=== PATIENT | male | born 1955 | race Caucasian/White ===

== ENCOUNTER → 2020-10-11 | Outpatient (CLI) | payer BC ==
[~2020-10-11] MED LIST: ALEVE220 MG PO; APRISO0.375 GM PO; ASPIR 8181 MG PO; BENTYL 10 MG CA10 MG PO; CENTRUM SILVER1 EAC2 PO; FISH OIL 1,001000 M2 PO; GLUCOPHAGE500 MG PO; GLYBURIDE 2.52.5 M1 PO; HYDROCHLOROTHIA50 MG PO; INVOKANA300 MG PO; KOMBIGLYZE XR1 EAC1 PO; LEVEMIR SUBQ; LISINOPRIL20 MG PO; LORTAB; ONDANSETRON HCL4 M2 PO; ONE DAILY COMP1 EAC2 PO; ONGLYZA5 MG PO; PREDNISONE 10 M10 MG; PREDNISONE 20 M20 M1 PO; ROWASA4 GM/60 ML RE; ZOCOR20 MG PO
== END ==
LOC: CAT 08:35
PROVIDERS: ATTEND Family Medicine
DX: Z12.2 Encounter for screening for malignant neoplasm of respiratory organs (principal); I25.10 Atherosclerotic heart disease of native coronary artery without angina pectoris; Z87.891 Personal history of nicotine dependence

== ENCOUNTER → 2020-10-11 | Outpatient (CLI) | payer BC | LOC: SJCVCIMAG 09:04 | PROVIDERS: ATTEND Internal Medicine Cardiovascular Disease | DX: I08.1 Rheumatic disorders of both mitral and tricuspid valves (principal); E11.9 Type 2 diabetes mellitus without complications ==

== ENCOUNTER 2021-12-01 15:29 | Emergency (ER) | payer BC, OTHER ==
[~2021-12-01] VITALS: Ht 170.2 cm; Wt 96.2 kg
[2021-12-01] MEDS ORDERED: JARDIANCE25 MG PO (15:42)
[2021-12-01] MEDS ORDERED: ZOCOR 20 MG TAB20 M1 PO (15:42)
[2021-12-01] MEDS ORDERED: METFORMIN HCL500 MG PO (15:43)
[2021-12-01] MEDS ORDERED: EZETIMIBE10 MG PO (15:43)
[2021-12-01] MEDS ORDERED: PRINIVIL20 MG PO (15:43)
[2021-12-01] MEDS ORDERED: HYDROCHLOROTHIA50 MG PO (15:44)
[2021-12-01 16:43] LABS: ABSOLUTE NEUTROPHILS 10.1 thou/uL (1.4-8.2); BASOPHILS 0.6 % (0.0-2.0); EOSINOPHILS 0.4 % (0.0-3.0); HEMATOCRIT 41.2 % (42.0-52.0); HEMOGLOBIN 13.9 gm/dL (14.0-18.0); LYMPHOCYTES 6.6 % (24.0-44.0); MCH 30.2 pg (26.0-34.0); MCHC 33.8 g/dL (28.0-37.0); MCV 89.6 fL (80.0-100.0); PLATELET COUNT 341 thou/uL (150-400); POLYS 85.4 % (36.0-66.0); RDW 12.7 % (10.5-14.5); WBC 11.9 thou/uL (4.0-11.0)
[2021-12-01 17:00] LABS: CALCIUM 8.5 mg/dL (8.5-10.1); CREATININE 0.8 mg/dL (0.7-1.3); POTASSIUM 3.1 mmol/L (3.5-5.1)
[2021-12-01 17:06] LABS: ALBUMIN 3.3 g/dL (3.4-5.0); TOTAL BILIRUBIN 0.7 mg/dL (0.2-1.0)
[2021-12-01 18:17] LABS: URINE BILIRUBIN NEGATIVE (Negative); URINE BLOOD NEGATIVE (Negative); URINE CLARITY CLEAR; URINE COLOR YELLOW; URINE GLUCOSE-RANDOM* 3+ (Negative); URINE KETONES 3+ (Negative); URINE LEUKOCYTES-REFLEX NEGATIVE (Negative); URINE NITRITE-REFLEX NEGATIVE (Negative); URINE PROTEIN (DIPSTICK) NEGATIVE (Negative); URINE UROBILINOGEN 0.2 E.U./dl (0.2-1.0)
[2021-12-01] MEDS ORDERED: PREDNISONE 10 M10 MG PO (19:13)
[2021-12-01] MEDS ORDERED: ZOFRAN ODT4 MG PO (19:38)
[2021-12-01 19:40] VITALS: BP 91/60
== END 2021-12-01 19:53 | disposition home or self-care (01) ==
LOC: ER 15:29
PROVIDERS: Emergency Medicine
DX: K52.89 Other specified noninfective gastroenteritis and colitis (principal); E78.5 Hyperlipidemia, unspecified; I10 Essential (primary) hypertension; Z79.899 Other long term (current) drug therapy; Z90.89 Acquired absence of other organs; Z98.890 Other specified postprocedural states; Z88.0 Allergy status to penicillin